=== PATIENT | female | born 1965 | race Caucasian/White ===

== ENCOUNTER 2017-09-02 12:20 | Emergency (ER) | payer SELFPAY ==
[~2017-09-02] VITALS: Ht 162.6 cm; Wt 53.5 kg
[~2017-09-02 12:20] MED LIST: ASPI81TA82 PO; IBUP800 PO; LOVA20TA PO; MULT-65 PO
[2017-09-02 12:22] VITALS: BP 127/62; PULSE 72; RESP 20; TEMP 98.1; O2SAT 96
--- NOTE | 2017-09-02 12:53 | PD ---
HPI Chief Complaint: Injury Time Seen by Provider: 12:40 Travel History International Travel<30 days: No Contact w/Intl Traveler<30days: No Traveled to known affect area: No History of Present Illness HPI 52-year-old female here with left foot pain. She reports that she tripped and fell yesterday. Since then she has had dorsal lateral left foot pain which is aching and worse with movement. She denies any other injuries and she has no other complaints. PFSH Past Medical History Diminished Hearing: No Menopausal: Yes Past Surgical History Abdominal Surgery: Yes (EXP LAP) Other Surgery: Yes Social History Alcohol Use: No Tobacco Use: Yes (1 PPD) Substance Use: No Allergies-Medications (Allergen,Severity, Reaction): Coded Allergies: latex (Unverified Allergy, Mild, 09/02/17) adhesive (Unverified Allergy, Unknown, Rash, 09/02/17) Reported Meds & Prescriptions Reported Meds & Active Scripts Active No Active Prescriptions or Reported Medications Review of Systems Musculoskeletal: Positive: Pain Skin: Positive Other (denies open wounds or bruising.) Physical Exam Narrative GENERAL: Well-developed well-nourished female in no acute distress SKIN: Warm and dry. No bruising, no open wounds CARDIOVASCULAR: Regular rate and rhythm. No murmur appreciated. RESPIRATORY: No accessory muscle use. Clear to auscultation. Breath sounds equal bilaterally. Extremities: Tender to palpation along the dorsal aspect of the left foot with no obvious deformities. Distal sensation and pulses are preserved. The Achilles tendon is intact. No tenderness to palpation to the ankle joint. Data Data Last Documented VS Vital Signs Date Time Temp Pulse Resp B/P (MAP) Pulse Ox O2 Delivery O2 Flow Rate FiO2 09/02/17 12:22 98.1 72 20 127/62 (83) 96 Orders Orders Foot, Complete ([id number]) (09/02/17 ) Ibuprofen (Motrin) (09/02/17 13:00) Acetaminophen (Tylenol) (09/02/17 13:30) Ed Discharge Order (09/02/17 13:47) MDM Medical Decision Making Medical Screen Exam Complete: Yes Emergency Medical Condition: Yes Medical Record Reviewed: Yes Differential Diagnosis Foot strain, contusion, fracture Narrative Course X-ray imaging reveals no acute abnormalities. The patient appears to have a strain to her foot. She has a walker for ambulation. She is stable for discharge. Diagnosis Primary Impression: Strain of left foot Qualified Codes: S96.912A - Strain of unspecified muscle and tendon at ankle and foot level, left foot, initial encounter Departure Forms: Tests/Procedures, Work Release Enter return to work date: Sep 03, 2017 Additional Instructions: Tylenol or Motrin for pain. Ice pack several times a day 20 minutes at a time the affected area. Return for any emergent medical conditions. Med/Other Pt SpecificInfo: No Change to Meds Scripts No Active Prescriptions or Reported Meds Disposition: 01 DISCHARGE HOME Condition: Stable Florentino Johnson Sep 02, 2017 12:53
[2017-09-02] MEDS ORDERED: IBUPROFEN 600 MG TAB PO ONE (13:00)
[2017-09-02] MEDS ORDERED: ACETAMINOPHEN 325 MG TAB PO ONE (13:30)
--- NOTE | 2017-09-02 13:41 | RADRPT ---
EXAM DATE/TIME: 09/02/2017 12:59 [facility] COMPARISON: No previous studies available for comparison. INDICATIONS : Twisted foot pain 5th metatarsal. MEDICAL HISTORY : None. SURGICAL HISTORY : None. ENCOUNTER: Initial ACUITY: 1 day PAIN SCORE: 10/10 LOCATION: Left foot. FINDINGS: Three view examination of the left foot demonstrates no soft tissue swelling, dislocation, or fractur e. The tarsal bones appear intact. The interphalangeal and metatarsophalangeal joints are intact. The calcaneus is intact. Bony mineralization is normal. CONCLUSION: No acute fracture. Isaac Espitia MD on September 02, 2017 at 13:39 Board Certified Radiologist. This report was verified electronically.
== END 2017-09-02 14:28 | disposition home or self-care (01) ==
LOC: NEPK 12:20
DX: S96.912A Strain of unspecified muscle and tendon at ankle and foot level, left foot, initial encounter (principal); F17.200 Nicotine dependence, unspecified, uncomplicated; W01.0XXA Fall on same level from slipping, tripping and stumbling without subsequent striking against object, initial encounter
CPT/HCPCS: 73630; 99283